=== PATIENT | female | born 1985 | race Caucasian/White ===

== ENCOUNTER 2019-01-08 11:26 | Inpatient (IN) ==
[2019-01-08 12:31] LABS: Apearance,Urine Slightly Hazy (Clear); Bacteria,Urine Occasional /HPF (Few); Bilirubin,Urine Negative (Negative); Blood, Urine Large mg/dL (Negative); Glucose,Urine (UA) Negative (Negative); Ketones,Urine Negative (Negative); Mucus,Urine Occasional /LPF (Occasional); Nitrite,Urine Negative (Negative); Protein,Urine Negative; RBC,Urine 1 /HPF (0-4); Squamous Epithelial Cell,Urine Few /HPF (0-10); Urine Color Yellow (Yellow); Urine Specific Gravity 1.014 (1.001-1.035); Urine Urobilinogen < 2.0 EU/DL (0.2-1.0); WBC,Urine 15 /HPF (0-6)
[2019-01-08] MEDS ORDERED: TERBUTALINE 1 MG/1 ML VIAL SUBCUT ONE ×2 (12:49→12:53)
[2019-01-08] MEDS ORDERED: LACTATED RINGERS 1,000 ML IV ONE ×2 (12:49→13:02)
[2019-01-08] MEDS ORDERED: ceFAZolin 2,000 MG in PREMIX 1 EACH IV ONE (12:58)
[2019-01-08] MEDS ORDERED: CITRIC ACID/SODIUM CITRATE 30 ML UDCUP PO ONE (12:58)
[2019-01-08] MEDS ORDERED: OXYTOCIN/LR 30 UNIT/1,000 ML BAG IV ONE (12:58)
[2019-01-08] MEDS ORDERED: FAMOTIDINE 20 MG/2 ML VIAL IV ONE (12:58)
[2019-01-08] MEDS ORDERED: OXYTOCIN 10 UNIT/ML VIAL IM ONE (12:58)
[2019-01-08] MEDS ORDERED: LACTATED RINGERS 1,000 ML IV SCH ×2 (13:00→15:00)
[2019-01-08 13:15] LABS: Basophils % 0.5 % (0.0-0.8); Eosinophils % 0.2 % (0.00-10.9); Hemoglobin 12.5 GM/DL (12.0-16.0); Immature Granulocytes % 1.5 %; Immature Granulocytes Absolute 0.13 #; Lymphocytes # 1.4 10*3/uL (1.4-4.0); Lymphocytes % 15.7 % (21.3-54.2); Mean Corpuscular HGB Conc 32.9 GM/DL (32-36); Mean Corpuscular Volume 95.2 FL (87-102); Mean Platelet Volume 11.6 FL (9.6-12.0); Monocytes % 5.3 % (1.7-12.7); Neutrophils % 76.8 % (38.7-73.9); Platelet Count 159 T/CUMM (130-400); Red Blood Count 3.99 MC/CUMM (3.8-5.5); Red Cell Distribution Width 12.7 % (9.3-17.3); White Blood Count 8.9 T/CUMM (4-12)
[2019-01-08 13:41] LABS: Albumin 3.3 G/DL (3.4-5.0); Bilirubin,Total 0.4 MG/DL (0.2-1.0); Calcium 9.5 MG/DL (8.5-10.1); Osmolality,Calculated 273.5 MOS/KG (273-304); Total Protein 7.3 G/DL (6.4-8.3)
[2019-01-08] MEDS ORDERED: DEXAMETHASONE 4 MG/1 ML VIAL ONE (13:58)
[2019-01-08 14:25] LABS: Cord Arterial Blood HCO3 22.4 MMOL/L
[2019-01-08 14:26] LABS: Apearance,Urine CLEAR (Clear); Bacteria,Urine Occasional /HPF (Few); Bilirubin,Urine Negative (Negative); Blood, Urine Negative (Negative); Glucose,Urine (UA) Negative (Negative); Ketones,Urine 20 mg/dL (Negative); Mucus,Urine Few /LPF (Occasional); Nitrite,Urine Negative (Negative); Protein,Urine Negative; RBC,Urine 1 /HPF (0-4); Squamous Epithelial Cell,Urine Occasional /HPF (0-10); Urine Color Yellow (Yellow); Urine Specific Gravity 1.015 (1.001-1.035); Urine Urobilinogen < 2.0 EU/DL (0.2-1.0); WBC,Urine 1 /HPF (0-6)
[2019-01-08 14:28] LABS: Cord Venous Blood HCO3 22.7 MMOL/L; Cord Venous Blood PO2 52.4 MMHG
[2019-01-08] MEDS ORDERED: PROPOFOL 200 MG/20 ML VIAL IV ONE (14:40)
[2019-01-08] MEDS ORDERED: KETOROLAC 60 MG/2 ML VIAL IM ONE (14:40)
[2019-01-08] MEDS ORDERED: ONDANSETRON 4 MG/2 ML VIAL ONE (14:40)
[2019-01-08] MEDS ORDERED: fentaNYL 100 MCG/2 ML VIAL ONE (14:40)
[2019-01-08] MEDS ORDERED: SUCCINYLCHOLINE 200 MG/10 ML VIAL ONE (14:40)
[2019-01-08] MEDS ORDERED: MAGNESIUM HYDROXIDE SUSP 30 ML UDCUP PO PRN (14:47)
[2019-01-08] MEDS ORDERED: RHO(D) IMMUNE GLOBULIN 300 MCG SYRINGE IM ONE (14:47)
[2019-01-08] MEDS ORDERED: ONDANSETRON 4 MG/2 ML VIAL IV PRN (14:47)
[2019-01-08] MEDS ORDERED: OXYTOCIN/LR 20 UNIT/1,000 ML BAG IV ONE ×2 (14:47→14:48)
[2019-01-08] MEDS ORDERED: ACETAMINOPHEN 325 MG TABLET PO PRN (14:47)
[2019-01-08] MEDS ORDERED: SEVOFLURANE 1 UNIT/15 MINUTE INH ONE (15:22)
[2019-01-08] MEDS ORDERED: LIDOCAINE 1% 5 ML VIAL ONE (15:22)
[2019-01-08] MEDS ORDERED: BUPIVACAINE 0.5% 50 ML VIAL ONE (15:22)
[2019-01-08] MEDS ORDERED: EPINEPHrine 1 MG/ML VIAL ONE (15:22)
[2019-01-08] MEDS ORDERED: ACETAMINOPHEN 500 MG TABLET PO SCH (16:00)
[2019-01-08] MEDS: HYDROmorphone 2 MG/1 ML VIAL IV PRN (18:24)
[2019-01-08] MEDS ORDERED: PROMETHAZINE 25 MG/1 ML VIAL IM PRN (19:17)
[2019-01-08] MEDS ORDERED: BENZOCAINE/MENTHOL LOZENGE 18/BOX PO PRN (19:29)
[2019-01-08] MEDS ORDERED: KETOROLAC 30 MG/1 ML VIAL IV SCH (20:00)
[2019-01-08 20:03] LABS: Basophils # 0.1 10*3/uL (0.0-0.2); Basophils % 0.4 % (0.0-0.8); Hematocrit 31.9 VOL% (35.7-47.0); Hemoglobin 10.5 GM/DL (12.0-16.0); Immature Granulocytes % 1.7 %; Immature Granulocytes Absolute 0.23 #; Lymphocytes # 0.6 10*3/uL (1.4-4.0); Lymphocytes % 4.3 % (21.3-54.2); Mean Corpuscular HGB Conc 32.9 GM/DL (32-36); Mean Corpuscular Volume 94.9 FL (87-102); Mean Platelet Volume 11.6 FL (9.6-12.0); Monocytes % 1.2 % (1.7-12.7); Neutrophils % 92.4 % (38.7-73.9); Platelet Count 164 T/CUMM (130-400); Red Blood Count 3.36 MC/CUMM (3.8-5.5); Red Cell Distribution Width 12.5 % (9.3-17.3); White Blood Count 13.3 T/CUMM (4-12)
[2019-01-08] MEDS: KETOROLAC 30 MG/1 ML VIAL IV SCH (20:27)
[2019-01-08] MEDS: ONDANSETRON 4 MG/2 ML VIAL IV PRN (20:48)
[2019-01-08 20:51] LABS: Band Neutrophils 1 % (0-10); Lymphocytes 1 % (20-55); Microcytosis 1+; Platelet Estimate Adequate; Polychromasia Slight; Segmented Neutrophils 97 % (50-85); Total Cells Counted 100
[2019-01-08] MEDS: ceFAZolin 1,000 MG in SYRINGE 1 EACH IV SCH (20:55)
[2019-01-08] MEDS: DOCUSATE SODIUM 100 MG CAPSULE PO SCH (20:56)
[2019-01-09] MEDS: KETOROLAC 30 MG/1 ML VIAL IV SCH ×2 (02:06→08:01)
[2019-01-09] MEDS: ONDANSETRON 4 MG/2 ML VIAL IV PRN (03:02)
[2019-01-09] MEDS: HYDROmorphone 2 MG/1 ML VIAL IV PRN (03:05)
[2019-01-09] MEDS: ceFAZolin 1,000 MG in SYRINGE 1 EACH IV SCH (04:34)
[2019-01-09 06:28] LABS: Basophils % 0.2 % (0.0-0.8); Hematocrit 27.6 VOL% (35.7-47.0); Hemoglobin 9.2 GM/DL (12.0-16.0); Immature Granulocytes % 1.8 %; Immature Granulocytes Absolute 0.22 #; Lymphocytes # 1.5 10*3/uL (1.4-4.0); Lymphocytes % 11.9 % (21.3-54.2); Mean Corpuscular HGB Conc 33.3 GM/DL (32-36); Mean Corpuscular Volume 96.5 FL (87-102); Mean Platelet Volume 11.5 FL (9.6-12.0); Monocytes % 6.8 % (1.7-12.7); Neutrophils % 79.3 % (38.7-73.9); Platelet Count 157 T/CUMM (130-400); Red Blood Count 2.86 MC/CUMM (3.8-5.5); Red Cell Distribution Width 12.7 % (9.3-17.3); White Blood Count 12.5 T/CUMM (4-12)
[2019-01-09] MEDS: METOCLOPRAMIDE 10 MG TABLET PO SCH ×3 (08:01→23:49)
[2019-01-09] MEDS: DOCUSATE SODIUM 100 MG CAPSULE PO SCH ×2 (08:02→20:59)
[2019-01-09] MEDS: MULTIVITAMIN (PRENATAL) TABLET PO SCH (09:11)
[2019-01-09] MEDS: FERROUS SULFATE 325 MG TABLET PO SCH (09:11)
[2019-01-09] MEDS: ENOXAPARIN 100 MG/ML SYRINGE SUBCUT SCH ×2 (10:09→20:59)
[2019-01-09] MEDS: MAGNESIUM HYDROXIDE SUSP 30 ML UDCUP PO SCH ×2 (14:01→20:59)
[2019-01-09] MEDS: IBUPROFEN 800 MG TABLET PO PRN (18:53)
[2019-01-09] MEDS: SIMETHICONE CHEW 80 MG TABLET PO PRN (20:59)
[2019-01-10] MEDS: METOCLOPRAMIDE 10 MG TABLET PO SCH ×3 (08:51→23:53)
[2019-01-10] MEDS: SIMETHICONE CHEW 80 MG TABLET PO PRN ×2 (08:51→21:09)
[2019-01-10] MEDS: DOCUSATE SODIUM 100 MG CAPSULE PO SCH ×2 (08:51→21:09)
[2019-01-10] MEDS: MULTIVITAMIN (PRENATAL) TABLET PO SCH (08:51)
[2019-01-10] MEDS: FERROUS SULFATE 325 MG TABLET PO SCH (08:51)
[2019-01-10] MEDS: MAGNESIUM HYDROXIDE SUSP 30 ML UDCUP PO SCH ×2 (08:51→21:09)
[2019-01-10] MEDS: ENOXAPARIN 100 MG/ML SYRINGE SUBCUT SCH ×2 (08:51→21:08)
[2019-01-10] MEDS ORDERED: DIPH/TET/ACEL PERT BOOSTER VACCINE 0.5 ML VIAL IM ONE (09:13)
[2019-01-10] MEDS: IBUPROFEN 800 MG TABLET PO PRN (18:09)
[2019-01-10] MEDS ORDERED: SERTRALINE 50 MG TABLET PO SCH (21:00)
[2019-01-11 07:19] VITALS: BP 131/72
[2019-01-11] MEDS: DOCUSATE SODIUM 100 MG CAPSULE PO SCH (08:42)
[2019-01-11] MEDS: FERROUS SULFATE 325 MG TABLET PO SCH (08:42)
[2019-01-11] MEDS: MULTIVITAMIN (PRENATAL) TABLET PO SCH (08:42)
[2019-01-11] MEDS: ENOXAPARIN 100 MG/ML SYRINGE SUBCUT SCH (08:44)
== END 2019-01-11 12:40 | disposition home or self-care (01) | DRG 788 ==
LOC: N.LDOUT 11:26 → N.LD 11:28 → N.OB 17:45
PROVIDERS: ADMIT Obstetrics & Gynecology; ATTEND Obstetrics & Gynecology
PROC: LDCSECT (ICD-10-PCS; 2019-01-08 12:00)

== ENCOUNTER 2021-07-08 10:10 | Inpatient (IN) ==
[2021-07-08] MEDS ORDERED: ceFAZolin 2,000 MG/50 ML DUPLEX IV ONE (10:50)
[2021-07-08] MEDS ORDERED: CITRIC ACID/SODIUM CITRATE 30 ML UDCUP PO ONE (10:50)
[2021-07-08] MEDS ORDERED: FAMOTIDINE 20 MG/2 ML VIAL IV ONE (10:50)
[2021-07-08] MEDS ORDERED: OXYTOCIN/LR 30 UNIT/1,000 ML BAG IV ONE (10:53)
[2021-07-08] MEDS ORDERED: OXYTOCIN 10 UNIT/ML VIAL IM ONE ×2 (10:53→12:41)
[2021-07-08] MEDS ORDERED: OXYTOCIN/LR 20 UNIT/1,000 ML BAG IV ONE ×2 (10:53→14:50)
[2021-07-08] MEDS ORDERED: LACTATED RINGERS 1,000 ML IV SCH ×4 (11:00→15:00)
[2021-07-08] MEDS ORDERED: ePHEDrine 50 MG/ML VIAL IV PRN (11:02)
[2021-07-08] MEDS ORDERED: LACTATED RINGERS 1,000 ML IV ONE (11:02)
[2021-07-08] MEDS ORDERED: PROMETHAZINE 25 MG/1 ML VIAL IM ONE (11:02)
[2021-07-08] MEDS ORDERED: diphenhydrAMINE 50 MG/1 ML VIAL IV PRN ×3 (11:02→18:31)
[2021-07-08] MEDS ORDERED: hydrOXYzine HCL 25 MG/1 ML VIAL IM PRN (11:02)
[2021-07-08] MEDS ORDERED: LACTATED RINGERS 250 ML IV PRN (11:02)
[2021-07-08 11:18] LABS: Basophils % 0.4 % (0.0-0.8); Eosinophils % 0.3 % (0.00-10.9); Hematocrit 34.7 VOL% (35.7-47.0); Hemoglobin 11.5 GM/DL (12.0-16.0); Immature Granulocytes % 3.1 %; Immature Granulocytes Absolute 0.23 #; Lymphocytes % 26.3 % (21.3-54.2); Mean Corpuscular HGB Conc 33.1 GM/DL (32-36); Mean Platelet Volume 11.8 FL (9.6-12.0); Monocytes % 6.3 % (1.7-12.7); Neutrophils % 63.6 % (38.7-73.9); Platelet Count 154 T/CUMM (130-400); Red Blood Count 3.69 MC/CUMM (3.8-5.5); Red Cell Distribution Width 13.1 % (9.3-17.3); White Blood Count 7.5 T/CUMM (4-12)
[2021-07-08] MEDS ORDERED: miSOPROStoL 200 MCG TABLET PO ONE (11:20)
[2021-07-08] MEDS ORDERED: CARBOPROST TROMETHAMINE 250 MCG/ML AMP IM ONE (11:20)
[2021-07-08] MEDS ORDERED: METHYLERGONOVINE 0.2 MG/1 ML AMP IM ONE (11:20)
[2021-07-08 11:39] LABS: Alanine Aminotransferase 20 U/L (13-56); Albumin 2.8 G/DL (3.4-5.0); Alkaline Phosphatase 160 U/L (45-117); Aspartate Amino Transferase 20 U/L (0-37); Bilirubin,Total < 0.39 MG/DL (0.20-1.00); Blood Urea Nitrogen 9 MG/DL (7-18); Calcium 9.1 MG/DL (8.5-10.1); Carbon Dioxide 22 MMOL/L (21-32); Estimated Glom Filtration Rate 147 ML/MIN; Glucose 79 MG/DL (74-106); Osmolality,Calculated 278.3 MOS/KG (273-304); Sodium 141 MMOL/L (136-145)
[2021-07-08 13:01] LABS: Platelet Estimate Adequate
[2021-07-08 13:02] LABS: Polychromasia Slight
[2021-07-08] MEDS ORDERED: PHENYLEPHRINE 1 MG/10 ML SYRINGE IV ONE (13:22)
[2021-07-08] MEDS ORDERED: BUPIVACAINE SPINAL 0.75% 2 ML AMP SPINAL ONE (13:22)
[2021-07-08] MEDS ORDERED: DEXAMETHASONE 4 MG/1 ML VIAL ONE (14:02)
[2021-07-08] MEDS ORDERED: ONDANSETRON 4 MG/2 ML VIAL ONE (14:02)
[2021-07-08] MEDS ORDERED: KETOROLAC 30 MG/1 ML VIAL ONE (14:02)
[2021-07-08] MEDS ORDERED: ACETAMINOPHEN INJ 1,000 MG/100 ML VIAL IV ONE (14:02)
[2021-07-08 14:16] LABS: Cord Venous Blood HCO3 22.5 MMOL/L; Cord Venous Blood PCO2 43.7 MMHG; Cord Venous Blood PO2 33.2
[2021-07-08 14:27] LABS: Bilirubin,Urine Negative (Negative); Blood, Urine Negative (Negative); Glucose,Urine (UA) Negative (Negative); Ketones,Urine 20 mg/dL (Negative); Mucus,Urine Many /LPF (Occasional); Nitrite,Urine Negative (Negative); Protein,Urine Negative; RBC,Urine 2 /HPF (0-4); Squamous Epithelial Cell,Urine Occasional /HPF (0-10); Urine Appearance CLEAR (Clear); Urine Color Yellow (Yellow); Urine Specific Gravity 1.021 (1.001-1.035); Urine Urobilinogen < 2.0 EU/DL (0.2-1.0)
[2021-07-08] MEDS ORDERED: ONDANSETRON 4 MG/2 ML VIAL IV PRN (14:50)
[2021-07-08] MEDS ORDERED: ACETAMINOPHEN 325 MG TABLET PO PRN (14:50)
[2021-07-08] MEDS ORDERED: RHO(D) IMMUNE GLOBULIN 300 MCG SYRINGE IM ONE (14:50)
[2021-07-08] MEDS: DOCUSATE SODIUM 100 MG CAPSULE PO SCH (21:46)
[2021-07-08] MEDS: IBUPROFEN 800 MG TABLET PO PRN (22:47)
[2021-07-09] MEDS: IBUPROFEN 800 MG TABLET PO PRN ×2 (06:38→14:40)
[2021-07-09] MEDS: MULTIVITAMIN (PRENATAL) TABLET PO SCH (08:39)
[2021-07-09] MEDS: SIMETHICONE CHEW 80 MG TABLET PO PRN (08:39)
[2021-07-09] MEDS: METOCLOPRAMIDE 10 MG/2 ML VIAL IV SCH ×2 (08:39→16:04)
[2021-07-09] MEDS: DOCUSATE SODIUM 100 MG CAPSULE PO SCH ×2 (08:39→20:36)
[2021-07-09 08:56] LABS: Basophils % 0.3 % (0.0-0.8); Hematocrit 34.5 VOL% (35.7-47.0); Immature Granulocytes % 2.1 %; Immature Granulocytes Absolute 0.22 #; Lymphocytes # 1.9 10*3/uL (1.4-4.0); Lymphocytes % 18.2 % (21.3-54.2); Mean Corpuscular HGB Conc 31.9 GM/DL (32-36); Mean Corpuscular Volume 95.8 FL (87-102); Mean Platelet Volume 11.7 FL (9.6-12.0); Monocytes % 5.8 % (1.7-12.7); Neutrophils % 73.6 % (38.7-73.9); Platelet Count 154 T/CUMM (130-400); Red Cell Distribution Width 12.9 % (9.3-17.3); White Blood Count 10.6 T/CUMM (4-12)
[2021-07-09] MEDS ORDERED: ENOXAPARIN 100 MG/ML SYRINGE SUBCUT ONE (14:53)
[2021-07-10] MEDS: METOCLOPRAMIDE 10 MG/2 ML VIAL IV SCH ×4 (01:12→19:00)
[2021-07-10] MEDS: DOCUSATE SODIUM 100 MG CAPSULE PO SCH ×3 (07:51→20:10)
[2021-07-10] MEDS: MULTIVITAMIN (PRENATAL) TABLET PO SCH ×2 (07:51→16:18)
[2021-07-10] MEDS: SIMETHICONE CHEW 80 MG TABLET PO PRN (07:51)
[2021-07-10] MEDS: IBUPROFEN 800 MG TABLET PO PRN ×2 (07:52→14:59)
[2021-07-10] MEDS ORDERED: ENOXAPARIN 100 MG/ML SYRINGE SUBCUT SCH (15:00)
[2021-07-10] MEDS: MAGNESIUM HYDROXIDE SUSP 30 ML UDCUP PO PRN (20:10)
[2021-07-11] MEDS: IBUPROFEN 800 MG TABLET PO PRN ×2 (00:57→09:07)
[2021-07-11] MEDS: METOCLOPRAMIDE 10 MG/2 ML VIAL IV SCH ×2 (01:04→08:40)
[2021-07-11] MEDS: DOCUSATE SODIUM 100 MG CAPSULE PO SCH (08:34)
[2021-07-11] MEDS: MULTIVITAMIN (PRENATAL) TABLET PO SCH (08:34)
[2021-07-11] MEDS: MAGNESIUM HYDROXIDE SUSP 30 ML UDCUP PO PRN (08:40)
[2021-07-11] MEDS ORDERED: METOCLOPRAMIDE 10 MG TABLET PO SCH (09:30)
[2021-07-11 09:51] VITALS: BP 134/67
[2021-07-11] MEDS ORDERED: DIPH/TET/ACEL PERT BOOSTER VACCINE 0.5 ML VIAL IM ONE (11:05)
== END 2021-07-11 13:35 | disposition home or self-care (01) | DRG 784 ==
LOC: N.LD 10:10 → N.OB 17:15
PROVIDERS: ADMIT Obstetrics & Gynecology; ATTEND Obstetrics & Gynecology